=== PATIENT | male | born 1955 | race African-American/Black ===

== ENCOUNTER 2020-09-16 10:22 | Outpatient (CLI) | payer MEDICARE, MEDICAID ==
[~2020-09-16] VITALS: Ht 172.7 cm; Wt 88.9 kg
[2020-09-16 11:03] VITALS: BP 133/89
[2020-09-16] MEDS ORDERED: AMLODIPINE BESYL5 MG ORAL (13:52)
[2020-09-16] MEDS ORDERED: AVAPRO150 MG ORAL (13:52)
[2020-09-16] MEDS ORDERED: PROTONIX40 MG ORAL (13:52)
== END 2020-09-16 13:03 | disposition home or self-care (01) ==
LOC: PAN 10:22
DX: K92.2 Gastrointestinal hemorrhage, unspecified (principal)
CPT/HCPCS: 99203